=== PATIENT | female | born 1955 ===

== ENCOUNTER → 2020-02-16 | Outpatient (CLI) | payer MEDICARE, OTHER | END | disposition home or self-care (01) | LOC: STAR 12:45 | PROVIDERS: ATTEND Anesthesiology | DX: Z20.828 Contact with and (suspected) exposure to other viral communicable diseases (principal) | CPT/HCPCS: 87635 ==

== ENCOUNTER 2020-02-20 10:08 | Day surgery (SDC) | payer MEDICARE ==
[~2020-02-20] VITALS: Ht 157.5 cm; Wt 97.2 kg
[2020-02-20 11:10] VITALS: BP 157/84
[2020-02-20] MEDS ORDERED: LACTATED RINGERS 1,000 ML IV SCH (11:30)
[2020-02-20] MEDS ORDERED: CHLORHEXIDINE 15 ML UDC MM ONE (11:30)
[2020-02-20] MEDS ORDERED: HYDR12.517 PO (11:42)
[2020-02-20] MEDS ORDERED: MULT-758 PO (11:42)
[2020-02-20] MEDS ORDERED: SIMV40TA20 PO (11:42)
[2020-02-20] MEDS ORDERED: ASPI81TA45 PO (11:42)
[2020-02-20] MEDS ORDERED: MELO15TA24 PO (11:42)
[2020-02-20] MEDS ORDERED: CHOL10003 PO (11:42)
[2020-02-20] MEDS ORDERED: INSU100C5 SQ-INSULIN (11:42)
[2020-02-20] MEDS ORDERED: INSU100V35 SQ ×2 (11:42→11:44)
[2020-02-20] MEDS ORDERED: FLUT9.9S NAS (11:42)
[2020-02-20] MEDS ORDERED: LISI-170 PO (11:42)
[2020-02-20] MEDS ORDERED: GLIM4TAB8 PO (11:42)
[2020-02-20] MEDS ORDERED: DICLOFENAC GEL TP (11:44)
[2020-02-20] MEDS ORDERED: FLUO20CA23 PO (11:46)
[2020-02-20 11:47] LABS: ALBUMIN 3.7 g/dL (3.4-5.0); ANION GAP 5 mmol/L (5-15); CALCIUM 9.5 mg/dL (8.5-10.1); CHLORIDE 101 mmol/L (98-107)
[2020-02-20 11:51] LABS: ALANINE AMINOTRANSFERASE 33 U/L (12-78); ALKALINE PHOSPHATASE 81 U/L (45-117); BILIRUBIN,TOTAL 0.3 mg/dL (0.2-1.0); CREATININE 0.73 mg/dL (0.55-1.02); TOTAL PROTEIN 8.1 g/dL (6.4-8.2)
[2020-02-20] MEDS ORDERED: PROPOFOL 10 MG/ML, 20ML ONE (12:01)
[2020-02-20] MEDS ORDERED: FENTANYL PF 100 MCG/2ML ONE (12:01)
[2020-02-20] MEDS ORDERED: ACETAMINOPHEN 325 MG TABLET PO PRN (12:30)
[2020-02-20] MEDS ORDERED: ONDANSETRON 2MG/ML, 2ML IVPush PRN (12:30)
[2020-02-20] MEDS ORDERED: KETOROLAC 30 MG/1 ML IV PRN (12:30)
[2020-02-20] MEDS ORDERED: FENTANYL PF 100 MCG/2ML IV PRN (12:30)
== END 2020-02-20 13:50 | disposition home or self-care (01) ==
LOC: OUT 10:08
PROVIDERS: ATTEND Surgery Surgery of the Hand
DX: M65.331 Trigger finger, right middle finger (principal); I10 Essential (primary) hypertension; E11.9 Type 2 diabetes mellitus without complications; E78.5 Hyperlipidemia, unspecified; G47.33 Obstructive sleep apnea (adult) (pediatric); E66.01 Morbid (severe) obesity due to excess calories; Z79.4 Long term (current) use of insulin; Z79.899 Other long term (current) drug therapy; Z88.8 Allergy status to other drugs, medicaments and biological substances; Z98.51 Tubal ligation status; Z82.61 Family history of arthritis; Z82.3 Family history of stroke
CPT/HCPCS: 26055; 80053; 82962; 93005; J2704; J3010; J7120